=== PATIENT | male | born 1950 | race African-American/Black ===

== ENCOUNTER 2017-10-25 11:12 | Emergency (ER) | payer MEDICARE | END 2017-10-25 13:05 | disposition home or self-care (01) | LOC: ERS 11:12 | DX: J02.9 Acute pharyngitis, unspecified (principal); I10 Essential (primary) hypertension; E78.5 Hyperlipidemia, unspecified; M19.90 Unspecified osteoarthritis, unspecified site; N40.0 Benign prostatic hyperplasia without lower urinary tract symptoms; F20.9 Schizophrenia, unspecified | CPT/HCPCS: 87081; 87430; 99283 ==

== ENCOUNTER 2018-03-03 23:36 | Inpatient (IN) | payer MEDICARE ==
--- NOTE | 2018-03-03 23:52 | CT ---
HEAD CT WITHOUT CONTRAST: 03/03/18 COMPARISON: 06/29/10 HISTORY: Slurred speech with right sided weakness. TECHNIQUE: Serial axial CT imaging at 5 mm intervals from vertex through skull base without contrast. FINDINGS: Imaged paranasal sinuses/mastoid air cells well aerated. No displaced calvarial fracture. No intracra nial hemorrhage, midline shift, mass effect or ventricular enlargement. IMPRESSION: No acute findings. Results called to Dr. Valdez at 11:41 p.m., 03/03/18. Code CR POS: MADAI
[2018-03-03 23:55] LABS: Hemoglobin 10.3 g/dL (14.0-18.0); Mean Corpuscular HGB CONC 34.2 g/dL (32.0-36.0); Mean Corpuscular Hemoglobin 27.4 pg (27.0-31.0); Mean Platelet Volume 7.3 fL (7.4-10.4); Platelet Count 191 thou/uL (130-400); RBC Distribution Width 14.8 % (11.5-14.5); Red Blood Cell (RBC) Count 3.77 mill/uL (4.70-6.10); White Blood Cell (WBC) Count 3.9 thou/uL (4.8-10.8)
[2018-03-03 23:59] LABS: INR-International Normal Ratio 1.1; Prothrombin Time 14.6 SEC (12.0-14.7)
[2018-03-04 00:07] LABS: ALT (SGPT) Less than 7 U/L (8-55); AST (SGOT) 20 U/L (5-34); Albumin 3.4 g/dL (3.4-4.8); Alkaline Phosphatase 110 U/L (40-150); Anion Gap 9 mmol/L (10-20); BUN (Urea Nitrogen) 5 mg/dL (8.4-25.7); Bilirubin, Total 0.5 mg/dL (0.2-1.2); Calc. Creatinine Clearance 0 mL/min (70-130); Calcium 8.4 mg/dL (7.8-10.44); Carbon Dioxide 25 mmol/L (23-31); Chloride 104 mmol/L (98-107); Estimated GFR-MDRD Greater than 90; Globulin 4.7 g/dL (2.4-3.5); Glucose 125 mg/dL (80-115); Potassium 3.3 mmol/L (3.5-5.1); Protein, Total 8.1 g/dL (5.8-8.1); Sodium 135 mmol/L (136-145)
[2018-03-04 00:11] LABS: CKMB 1.8 ng/mL (0-6.6)
[2018-03-04 00:18] LABS: Hypochromia SLIGHT = 6-15 cells (100X) (0-5/hpf); Lymphocytes 72 % (21-51); MDiff Complete? YES; Monocytes 12 % (0-10); Neutrophil 16 % (42-75); PLT Morphology Comment Appears Adequate
[2018-03-04 00:31] LABS: Bilirubin Negative (Negative); Blood, Urine Negative (Negative); Clarity CLEAR (Clear); Glucose, Urine (Dipstick) Negative (Negative); Leukocyte Negative (Negative); Nitrite Negative (Negative); Protein, Urine (Dipstick) Negative (Neg-Trace); Specific Gravity, Urine 1.009 (1.002-1.036); pH, Urine 6.5 (5.0-9.0)
[2018-03-04 00:40] LABS: Amphetamine Not Detected (NotDetected); Barbiturates Screen Not Detected (NotDetected); Benzodiazepine Screen Not Detected (NotDetected); Cocaine Metabolite Screen Not Detected (NotDetected); Medtox Control Line Valid? VALID (VALID); Medtox Reader # READER 4; Methadone Not Detected (NotDetected); Methamphetamine Not Detected (NotDetected); Opiate Screen Not Detected (NotDetected); Oxycodone Screen Not Detected (NotDetected); Phencyclidine (PCP) Not Detected (NotDetected); THC/Cannabinoid Screen Not Detected (NotDetected); Tricyclic Screen Not Detected (NotDetected)
[2018-03-04] MEDS ORDERED: Ondansetron HCl/PF 4 MG/2 ML Vial IVP PRN (02:34)
[2018-03-04] MEDS ORDERED: Acetaminophen 325 MG TAB PO PRN ×2 (02:34→09:07)
[2018-03-04] MEDS ORDERED: Ondansetron ODT 4 MG TAB SL PRN (02:34)
[2018-03-04 03:07] VITALS: BMI 20.9
[2018-03-04 04:02] LABS: Troponin I 0.038 ng/mL (< 0.028)
[2018-03-04 06:18] LABS: Troponin I 0.025 ng/mL (< 0.028)
--- NOTE | 2018-03-04 07:35 | CT ---
CT ANGIOGRAM OF THE HEAD CT ANGIOGRAM OF THE NECK: DATE: 03/03/18. COMPARISON: None. HISTORY: Slurred speech with right-sided weakness. TECHNIQUE: Serial axial CT imaging is obtained at 1.25 mm intervals from the vertex through the lung apices with IV contrast using a CT angiogram protocol. Coronal and sagittal 3D reformatted imaging obtained. FINDINGS: There is a spiculated mass in the right upper lobe measuring 3.2 cm, suspicious for right upper lobe malignancy. Abnormal increased linear density noted in left upper lobe, nonspecific. Enhancement of the arterial structures is limited secondary to timing of the contrast bolus and numer ous venous collateral vessels throughout the posterior aspect of the neck. The degree of venous cont amination and associated streak artifact limits detailed assessment of the arterial structures of the neck as well. There is atherosclerotic calcification in the aortic arch. The origin of the innominate artery, righ t subclavian artery, and right common carotid artery are grossly unremarkable but not well opacified. Origin of left subclavian and left common carotid artery is unremarkable. Streak artifact limits d etailed assessment of the proximal left CCA as well as the left subclavian artery at the level of the left vertebral artery origin. The degree of venous collaterals limits assessment of both vertebral arteries throughout the majority of their course. Distally, the vertebral arteries are patent. There is atherosclerotic calcification at the origin of bilateral internal carotid arteries. There i s no hemodynamically significant stenosis on the basis of NASCET criteria appreciated within the inte rnal or common carotid artery on either side. The basilar artery and its branches appear patent. No central occlusion, sacular aneurysm, or high-g rade stenosis of the posterior circulation is appreciated. There is atherosclerotic calcification of the cavernous carotid arteries bilaterally. Detailed asses sment of the distal EVERARDO and MCA branches is limited on the basis of suboptimal contrast opacification . The A1 and M1 segments appear patent. MCA bifurcation and ICA bifurcation appears grossly unremark able with no central occlusion seen. Osseous structures demonstrate multilevel degenerative change of the cervical spine with disk space n arrowing, degenerative end plate change, and osteophyte formation, most prominent at C3-4, C4-5, C5-6 , and C6-7. No worrisome lytic or blastic bone lesion. IMPRESSION: 1. Suboptimal arterial opacification secondary to extensive collateral vessels. No central arterial occlusion. 2. A spiculated mass measuring 3.2 cm in the right upper lobe, highly suspicious for bronchogenic ca rcinoma. Results called to Dr. Valdez at 12:02 a.m. 03/04/18. CODE CR POS: MADAI
[2018-03-04] MEDS ORDERED: Bisacodyl 5 MG TAB PO PRN (09:07)
[2018-03-04] MEDS ORDERED: Ondansetron ODT 4 MG TAB PO PRN (09:07)
[2018-03-04] MEDS ORDERED: ACETAMINOPHEN PO PRN (09:10)
[2018-03-04] MEDS ORDERED: Guaifenesin DM 100-10/5 ML UDCUP PO PRN (09:10)
[2018-03-04] MEDS ORDERED: DIPHENHYDRAMINE PO PRN (09:10)
[2018-03-04] MEDS ORDERED: Enoxaparin Sodium 40 MG/0.4 ML SYRINGE SC SCH (09:45)
[2018-03-04] MEDS ORDERED: Amlodipine 10 MG TAB PO SCH (09:45)
[2018-03-04] MEDS ORDERED: Acetaminophen 500 MG TAB PO PRN (09:55)
[2018-03-04] MEDS ORDERED: diphenhydrAMINE 25 MG CAP PO PRN (09:56)
[2018-03-04] MEDS ORDERED: Benztropine 1 MG TAB PO PRN (10:00)
--- NOTE | 2018-03-04 11:05 | RAD ---
PORTABLE CHEST 1 VIEW: DATE: 03/03/18. TIME: 11:49 p.m. HISTORY: Small mass found on top of kidney. FINDINGS: Comparison is made with the exam of 01/31/12. FINDINGS: The heart size is normal. The aorta is tortuous. The lungs are expanded with plate of linear atelec tasis in the left mid lung. There is a 2.8 cm nodule in the right mid lung. No pneumothoraces or pl eural effusions are seen. IMPRESSION: A 2.8 cm right lung nodule. Further evaluation with CT scan is recommended. CODE T POS: MADAI
--- NOTE | 2018-03-04 12:13 | MRI ---
MRI RUPERT WITHOUT CONTRAST: HISTORY: Right arm and leg weakness and slurred speech yesterday which have all resolved. FINDINGS: Correlation is made with the previous day's CT scan. There is a small focus of restricted diffusion in the left periventricular white matter consistent wi th recent lacunar infarction. There are multiple foci of T2 prolongation in the periventricular whit e matter consistent with chronic small-vessel ischemic disease. No transcortical infarct, hemorrhage , midline shift, or abnormal extraaxial fluid collections are seen. The ventricular size is appropri ate and the basilar cisterns are patent. IMPRESSION: Recent lacunar infarction in the left periventricular white matter. POS: RE
[2018-03-04] MEDS ORDERED: Potassium Chloride 20 MEQ TAB PO SCH (12:45)
[2018-03-04] MEDS ORDERED: Phenazopyridine HCl 97.5 MG TABLET PO PRN (13:00)
--- NOTE | 2018-03-04 13:06 | HP ---
PRIMARY CARE PROVIDER: Iqra Barahona NP CHIEF COMPLAINT: Weakness. HISTORY OF PRESENT ILLNESS: Mr. Blair is a pleasant 67-year-old gentleman who was seen at [facility] on 03/04/2018. Last night, he reports having right upper extremity and right lower extremity numbness and weakness. He reports that he was unable to lift objects. He also reports having slurred speech. He waited fo r 30 minutes to see if the symptoms would resolve, then he told his . After 45 minutes, he had s pontaneous resolution of the symptoms. He reports occasional chronic cough, but no hemoptysis. He d enies any fevers or chills. He denies any chest pain. He denies any nausea, vomiting, diarrhea, or abdominal pain. REVIEW OF SYSTEMS: All other systems reviewed and found to be negative. PAST MEDICAL HISTORY: Adrenal tumor status post removal, osteoarthritis, dyslipidemia, hypertension, benign prostatic hypertrophy, chronic urinary tract infections, and self catheterization. PAST SURGICAL HISTORY: Partial prostatectomy, transurethral resection of prostate, right adrenal gla nd removal to remove a benign tumor. PSYCHIATRIC HISTORY: Schizophrenia. SOCIAL HISTORY: The patient used to smoke 5 packs of cigarettes a day. He quit smoking 10 years ago . He denies any alcohol use or recreational drug use. FAMILY HISTORY: Myocardial infarction in his mother. ALLERGIES: THORAZINE and VALIUM. CURRENT MEDICATIONS: Amlodipine 10 mg daily, guaifenesin/dextromethorphan p.r.n., acetaminophen/diph enhydramine 2 tablets at bedtime, Cogentin 2 mg 4 times a day as needed, Dulcolax 5 mg daily, fluphen azine 25 mg intramuscularly every month, Macrobid 100 mg 3 times a day, started by his urologist for recurrent urinary tract infections, fish oil 500 mg daily, phenazopyridine 200 mg 3 times a day, pota ssium gluconate 500 mg daily. CODE STATUS: I discussed his code status. He is FULL CODE. His is the surrogate decision make r. PHYSICAL EXAMINATION: GENERAL: Mr. Blair is awake and alert, not in acute distress. VITAL SIGNS: Blood pressure is 154/74, pulse 74, respiratory rate 16, and oxygen saturation 99% on r oom air. He is afebrile. EYES: No scleral icterus. No conjunctival pallor. ENT: Moist mucosal membranes, no oropharyngeal erythema or exudates. NECK: Supple, nontender, trachea is midline. RESPIRATORY: Accessory muscles of breathing are not active. Chest wall movements are symmetric bila terally. LUNGS: Clear to auscultation without wheeze, rhonchi or crepitations. CARDIOVASCULAR: S1 and S2 are heard, regular. Peripheral pulses palpable. No carotid bruit, no per icardial rub. ABDOMEN: Soft, nontender, bowel sounds are heard, no hepatomegaly, no splenomegaly. NEUROLOGIC: Cranial nerves II-XII intact. No focal motor or sensory deficits. Power is 5/5 in all 4 extremities. Deep tendon reflexes 2+, plantar reflexes downgoing bilaterally. LYMPHATIC: No cervical lymphadenopathy. PSYCHIATRIC: Normal mood, normal affect. The patient is oriented to person, place, and time. LABORATORY DATA: Mr. Blair's labs and investigations were reviewed. I reviewed his electrocardiog chuck, which shows normal sinus rhythm, no ST changes to suggest an acute coronary syndrome. I also re viewed his noncontrast CT scan of brain, which does not show any acute intracranial abnormalities. I also reviewed his chest x-ray, which does not show any pulmonary infiltrates. He has a 2.8 cm right lung nodule. He also had CT [place] angiogram with contrast, with suboptimal arterial opac ification secondary to extensive collateral vessels. There was no central arterial occlusion. He echevarria s a spiculated mass measuring 3.2 cm in the right upper lobe, highly suspicious for bronchogenic carc inoma according to radiologist. He has leukopenia with 3900 white cells, normocytic anemia with hemo globin 10.3, normal platelet count, relative neutropenia with 16% neutrophils, lymphocytosis with 72% lymphocytes, monocytosis with 12% monocytes, INR 1.1, decreased sodium of 135, decreased potassium o f 3.3, normal creatinine, unremarkable liver profile, troponin I in the indeterminate at 0.038, subse quently normal at 0.025, normal urinalysis and normal urine drug screen. ASSESSMENT AND PLAN: Mr. Blair is a pleasant 67-year-old gentleman who was seen at [facility] on 03/04/2018. His problem list includes: 1. Lung mass: Patient has a newly diagnosed lung mass which will need further investigations. He i s being admitted to the hospital. Pulmonology Service will be consulted. 2. Right-sided weakness. His presentation is concerning for TIA/CVA. Await MRI brain, await Neurol ogy Service input, start patient on aspirin and statin. 3. Hypokalemia: Replace potassium. 4. Hyponatremia: Mild, likely asymptomatic. 5. Hypertension: Monitor vital signs, titrate antihypertensives as needed. 6. Urinary tract infections, recurrent. Continue Macrobid. He was reportedly at a different antibi otic in the past and was started on nitrofurantoin 100 mg 3 times a day by urologist, Dr. Mendez. Many thanks for allowing me to participate in your patient's care. Please feel free to contact me wi th any questions or concerns. LEVEL OF RISK: High. LEVEL OF COMPLEXITY: High.
--- NOTE | 2018-03-04 14:07 | CON ---
DATE OF CONSULTATION: 03/04/2018 CONSULTING PHYSICIAN: Hospitalist service. IMPRESSION: 1. Transient ischemic attack. 2. Hypertension. 3. Right lung mass. 4. History of prior tobacco use, 10 years ago. PLAN: 1. Aspirin 81 mg per day. 2. Lipitor 20 mg per day. 3. Echocardiogram. Mr. Blair is a 67-year-old man, who reports having a history of hypertension, but no other vascular risk factors. He was at home when he suddenly developed weakness of the right side of the body laura g with some slurred speech. His symptoms lasted about an hour. He was brought into the emergency ro om for evaluation. His CTA did not reveal any significant blockages, although there was some subopti mal evaluation of the intracranial vessels. He reports that he has been having some weight loss over the last few months. He has some morning cough, but no evidence of blood, only just clear phlegm. He denies any shortness of breath or chest pain. PAST MEDICAL HISTORY: Just hypertension. FAMILY HISTORY: Noncontributory. SOCIAL HISTORY: Prior tobacco use. ALLERGIES: CHLORPROMAZINE, and VALIUM. REVIEW OF SYSTEMS: No complaint of headache, nausea, vomiting, vertigo, swallowing difficulties, abd ominal pain. PHYSICAL EXAMINATION: GENERAL: He is a tall, thin elderly man, in no distress. VITAL SIGNS: Blood pressure 158/89, pulse 68, respirations 18, temperature 98.2. HEENT: Pupils equal and reactive. Conjunctivae are clear. Oropharynx clear. NECK: Supple. EXTREMITIES: No cyanosis. NEUROLOGIC EXAM: He is alert and appropriate. His speech is fluent and clear. His exam is, otherwi se, nonfocal. IMAGING: MRI of the brain was reviewed and showed some minimal subcortical white matter ischemic leonard nges, but no acute areas of ischemia. LABORATORY STUDIES: Unremarkable CBC, other than mild anemia with a hemoglobin of 10, normal geochemist ry panel, urinalysis, and toxicology. SUMMARY: This is a 67-year-old man with history of hypertension and transient right-sided weakness, likely secondary to a small vessel transient ischemic attack. He has an incidental finding of a righ t apical mass that will need further evaluation. We would proceed with routine stroke prevention sadaf sures as noted and I would be happy to follow up with him as needed.
[2018-03-04] MEDS: Bisacodyl 5 MG TAB PO PRN (14:26)
[2018-03-04] MEDS: Nitrofurantoin Macrocrystal 50 MG CAP PO SCH ×2 (15:54→20:44)
--- NOTE | 2018-03-04 17:50 | CON ---
DATE OF CONSULTATION: 03/04/2018 Following consultation encompassed 70 minutes time; of that, greater than 50% was spent with the patient and/or in the patient's unit in the hospital. REASON FOR CONSULTATION: Lung mass. HISTORY OF PRESENT ILLNESS: The patient is a pleasant 67-year-old male who came into the hospital yesterday with acute right arm weakness. He did not have any signs of stroke on CT and the symptoms of the right arm abated without intervention. As a part of the workup, the top of his right lung accidentally got scanned and revealed a 3-cm lung mass in the peripheral aspect of the right upper lobe anteriorly. I have had the opportunity to go back to look for previous scans on this patient back in 02/2016. He had a scan done for aortic dissection, which demonstrated a distal 3.8 cm abdominal aortic aneurysm. There was also a poorly circumscribed pulmonary nodule in the right upper lobe with central cavitation. It does not appear that there was any further workup done for the lesion at that time. Discharge summary from that admission in 2015 does not mention any followup in regard to the lung mass at that time. The patient states he has lost about 25 pounds of weight. He is not having hemoptysis. He denies any previous TB exposure. He quit smoking about 18 years ago. PAST MEDICAL HISTORY: 1. He has had an adrenal tumor resected on the right side in [place] several years ago. 2. He has prostatic hypertrophy. 3. Osteoarthritis. 4. Hypertension. 5. Hyperlipidemia. 6. Atonic bladder. PAST SURGICAL HISTORY: 1. Right adrenalectomy. 2. Partial prostatectomy with TURP. SOCIAL HISTORY: Smoking history as outlined above. Does not consume alcohol. Does not use illicit drugs. PSYCHIATRIC HISTORY: Remarkable for schizophrenia. ALLERGIES: THORAZINE and VALIUM. FAMILY MEDICAL HISTORY: Remarkable for coronary artery disease. MEDICATIONS PRIOR TO ADMISSION: Prolixin D, Macrodantin, Dulcolax, phenazopyridine, Tussin cough syrup, potassium, Cogentin, amlodipine. PHYSICAL EXAMINATION: VITAL SIGNS: Temperature 98.6, pulse 72, respirations 20, O2 sat 100%, blood pressure 154/86. GENERAL: He is awake, alert, in no distress. HEENT: Pupils reactive. Sclerae anicteric. Oropharynx clear. NECK: Without adenopathy, JVD or bruits. LUNGS: Clear to auscultation without wheezing, rhonchi or rales. CARDIOVASCULAR: S1, S2 regular without murmur. ABDOMEN: Soft, nontender. No hepatosplenomegaly. EXTREMITIES: He has 1+ clubbing without cyanosis or edema. NEUROLOGIC: 5/5 strength throughout. Reflexes 2+/4 throughout. No sensory deficits noted. LABORATORY DATA: White blood cell count 3.9, hematocrit 30, platelet count 191, 000. INR 1.1. Sodium 135, potassium 3.3, chloride 104, CO2 25, BUN 5, creatinine 0.9, glucose 125. Troponin 0.025. Urinalysis was negative. Toxicology screen negative. I reviewed the CT in detail. ASSESSMENT: 1. A 3-cm right upper lobe lung mass, which is most likely cancer. 2. Stroke type symptoms. RECOMMENDATIONS: 1. He needs a percutaneous biopsy of the right upper lobe mass done by CT guidance. This will be the peripheral avenue of biopsy given the location of the lesion. 2. If at all possible, withhold aspirin, antiplatelet therapy and anticoagulation prior to this as long as it is felt safe by Neurology. BONILLA
[2018-03-04] MEDS ORDERED: Atorvastatin Calcium 10 MG TAB PO SCH (21:00)
[2018-03-05 05:23] LABS: Anion Gap 10 mmol/L (10-20); BUN (Urea Nitrogen) 6 mg/dL (8.4-25.7); Calc. Creatinine Clearance 87 mL/min (70-130); Calcium 8.9 mg/dL (7.8-10.44); Carbon Dioxide 25 mmol/L (23-31); Cardiac Risk 5.8 (Less than 4.5); Chloride 105 mmol/L (98-107); Cholesterol 138 mg/dl (< 200 Desired); Estimated GFR-MDRD Greater than 90; Glucose 104 mg/dL (80-115); HDL Cholesterol 24 mg/dL (>60 Neg Risk); LDL Cholesterol, Calculated 88 mg/dL; Potassium 3.8 mmol/L (3.5-5.1); Sodium 136 mmol/L (136-145); Triglycerides 130 mg/dL (Less than 150)
[2018-03-05 05:52] LABS: Band 1 % (5-11); Eosinophils 5 % (0-10); Hemoglobin 10.6 g/dL (14.0-18.0); Lymphocytes 72 % (21-51); MDiff Complete? YES; Mean Corpuscular HGB CONC 33.1 g/dL (32.0-36.0); Mean Corpuscular Hemoglobin 26.6 pg (27.0-31.0); Mean Corpuscular Volume 80.2 fL (78.0-98.0); Monocytes 13 % (0-10); Neutrophil 7 % (42-75); PLT Morphology Comment Appears Adequate; Platelet Count 181 thou/uL (130-400); RBC Distribution Width 15.2 % (11.5-14.5); Red Blood Cell (RBC) Count 3.99 mill/uL (4.70-6.10); White Blood Cell (WBC) Count 3.8 thou/uL (4.8-10.8)
--- NOTE | 2018-03-05 08:34 | PRG ---
DATE OF SERVICE: 03/05/2018 SUBJECTIVE: The patient has had no further symptoms of stroke. He says he feels okay. PHYSICAL EXAMINATION: VITAL SIGNS: On exam, temperature is 99.7, pulse 100, respirations 20, O2 saturation 97% on room air , blood pressure 156/91. HEENT: Unremarkable. NECK: No JVD. CHEST: Clear. ABDOMEN: Soft. EXTREMITIES: No edema. LABORATORY DATA: White blood cell count 3.8, hematocrit 32, platelet count 181. Sodium 136, potassi um 3.8, chloride 105, CO2 of 25, BUN 6, creatinine 0.9, glucose 104. ASSESSMENT: 1. Lung mass. 2. Transient ischemic attack. PLAN: Awaiting percutaneous lung biopsy of the lung mass.
[2018-03-05] MEDS ORDERED: Fish Oil 1,000 MG CAP PO SCH (09:00)
[2018-03-05] MEDS ORDERED: Enoxaparin Sodium 40 MG/0.4 ML SYRINGE SC SCH (09:00)
[2018-03-05] MEDS ORDERED: POTASSIUM GLUCONATE PO SCH (09:00)
[2018-03-05] MEDS ORDERED: Amlodipine 10 MG TAB PO SCH (09:00)
[2018-03-05] MEDS ORDERED: Aspirin 325 mg Enteric Coated Tablet PO SCH (09:00)
[2018-03-05] MEDS ORDERED: Sodium Bicarbonate 2.5 MEQ/5 ML VIAL ONE (09:37)
[2018-03-05] MEDS ORDERED: Fentanyl 100 MCG/2 ML VIAL ONE (09:37)
[2018-03-05] MEDS ORDERED: Iopamidol 370 76% 100 ML VIAL ONE (10:46)
[2018-03-05] MEDS: Nitrofurantoin Macrocrystal 50 MG CAP PO SCH (11:20)
[2018-03-05 11:26] VITALS: TEMP 98.5
[2018-03-05 11:37] VITALS: BP 146/91
--- NOTE | 2018-03-05 12:07 | PDOC.PN ---
- Subjective Encounter Start Date: 03/05/18 Encounter Start Time: 07:00 Pt seen for followup re: TIA. Denies chest pain, shortness of breath, fevers or chills. - Objective Resuscitation Status: Resuscitation Status FULL:Full Resuscitation Vital Signs & Weight: Vital Signs (12 hours) Temp Pulse Pulse Pulse Pulse Resp BP 03/05/18 11:26 98.5 F 83 18 03/05/18 11:20 100 03/05/18 11:00 80 80 83 146/91 H 03/05/18 07:52 99.7 F H 100 20 03/05/18 07:42 99.7 F H 100 20 03/05/18 07:40 100 87 156/91 H 03/05/18 04:00 98.8 F 84 18 BP BP BP Pulse Ox 03/05/18 11:26 150/87 H 94 L 03/05/18 11:20 03/05/18 11:00 147/85 H 150/87 H 03/05/18 07:52 03/05/18 07:42 156/91 H 97 03/05/18 07:40 157/90 H 03/05/18 04:00 139/81 97 Weight Weight 176 lb I&O: 03/04/18 03/05/18 03/06/18 06:59 06:59 06:59 Intake Total 1220 Balance 1220 Result Diagrams: 03/05/18 04:52 03/05/18 04:52 Phys Exam - Physical Examination Constitutional: NAD HEENT: moist MMs, sclera anicteric, oral pharynx no lesions, 2+ tonsils Neck: no nodes, no JVD, supple, full ROM Respiratory: no wheezing, no rales, no rhonchi, clear to auscultation bilateral Cardiovascular: RRR, no rub S1, S2 Gastrointestinal: soft, non-tender, no distention, positive bowel sounds Neurological: moves all 4 limbs Psychiatric: normal affect, A&O x 3 Dx/Plan (1) TIA (transient ischemic attack) Code(s): G45.9 - TRANSIENT CEREBRAL ISCHEMIC ATTACK, UNSPECIFIED Status: Acute Comment: continue aspirin and statin (2) Lung mass Code(s): R91.8 - OTHER NONSPECIFIC ABNORMAL FINDING OF LUNG FIELD Status: Acute Comment: for biopsy today (3) Hypertension Code(s): I10 - ESSENTIAL (PRIMARY) HYPERTENSION Status: Chronic (4) BPH (benign prostatic hyperplasia) Code(s): N40.0 - BENIGN PROSTATIC HYPERPLASIA WITHOUT LOWER URINRY TRACT SYMP Status: Chronic Comment: stable (5) Osteoarthritis Code(s): M19.90 - UNSPECIFIED OSTEOARTHRITIS, UNSPECIFIED SITE Status: Chronic Comment: stable (6) Dyslipidemia Code(s): E78.5 - HYPERLIPIDEMIA, UNSPECIFIED Status: Chronic Comment: stable - Plan * . Review of Systems - Review of Systems Constitutional: negative: fever, chills, sweats, weakness, malaise Respiratory: negative: Cough, Shortness of Breath, SOB with Excertion, Pleuritic Pain, Wheezing Cardiovascular: negative: chest pain, palpitations, orthopnea, paroxysmal nocturnal dyspnea, edema, light headedness Skin: negative: Rash, Lesions, Will, Bruising Neurological: negative: Weakness, Numbness, Incoordination, Change in Speech, Confusion, Seizures - Medications/Allergies Allergies/Adverse Reactions: Allergies Allergy/AdvReac Type Severity Reaction Status Date / Time chlorpromazine HCl Allergy Severe SEIZURES Verified 03/18/16 02:27 [From Thorazine] diazepam [From Valium] Allergy Severe SEIZURES Verified 03/18/16 02:27 Medications: Current Medications Acetaminophen (Tylenol) 650 mg PO Q4H PRN PRN Reason: Headache/Fever or Pain Acetaminophen (Tylenol) 1,000 mg PO HS PRN PRN Reason: Insomnia Amlodipine Besylate (Norvasc) 10 mg PO DAILY [facility] Last Admin: 03/05/18 11:20 Dose: 10 mg Atorvastatin Calcium (Lipitor) 10 mg PO HS [facility] Last Admin: 03/04/18 20:44 Dose: 10 mg Benztropine Mesylate (Cogentin) 2 mg PO QID PRN PRN Reason: MUSCLE PAIN Bisacodyl (Dulcolax) 5 mg PO DAILY PRN PRN Reason: Constipation Last Admin: 03/04/18 14:26 Dose: 5 mg Diphenhydramine HCl (Benadryl) 50 mg PO HS PRN PRN Reason: Insomnia Enoxaparin Sodium (Lovenox) 40 mg SC 0900 [facility] Fish Oil (Fish Oil) 1,000 mg PO DAILY [facility] Last Admin: 03/05/18 11:20 Dose: 1,000 mg Fluphenazine Decanoate (Prolixin D) 25 mg IM Q28D [facility] Last Admin: 03/04/18 10:31 Dose: Not Given Guaifenesin/Dextromethorphan (Robitussin Dm) 10 ml PO Q4HR PRN PRN Reason: Cough Nitrofurantoin Macrocrystals (Macrodantin) 100 mg PO TID [facility] Last Admin: 03/05/18 11:20 Dose: 100 mg Ondansetron HCl (Zofran Odt) 4 mg PO Q6H PRN PRN Reason: Nausea/Vomiting Phenazopyridine HCl (Azo Standard) 97.5 mg PO Q8H PRN PRN Reason: UTI PAIN Sodium Chloride (Flush - Normal Saline) 10 ml IVF Q12HR [facility] Last Admin: 03/05/18 11:21 Dose: 10 ml Sodium Chloride (Flush - Normal Saline) 10 ml IVF PRN PRN PRN Reason: Saline Flush Last Admin: 03/04/18 20:46 Dose: 10 ml
[2018-03-05] MEDS ORDERED: Aspirin 81 mg Enteric Coated Tablet PO SCH (12:15)
--- NOTE | 2018-03-05 12:23 | RAD ---
CHEST 1 VIEW: HISTORY: Lung mass with biopsy. FINDINGS: Cardiac silhouette and pulmonary vasculature unremarkable. Mediastinum midline. Right lung mass is apparent. No evidence of pneumothorax. radiation monitor leads overlie the chest. IMPRESSION: No evidence of post-biopsy pneumothorax. POS: REH
[2018-03-05] MEDS: Bisacodyl 5 MG TAB PO PRN (12:49)
--- NOTE | 2018-03-05 12:53 | CT ---
CT CHEST WITH IV CONTRAST: HISTORY: Lung mass. FINDINGS: At the peripheral aspect of the anterior segment, right upper lobe, a spiculated, irregular shaped ma ss measures up to 2.9 cm in length x 3.2 cm in width x 2.7 cm in depth. It contains a small central focus of cavitation. Linear scarring is evident within the left upper lobe. The lungs are hyperinflated with scattered bu llae. A lobular cystic lesion in the right lower lobe does contain a density along the medial margin , which is contiguous with the adjacent vessels. This may represent a vascular malformation with adj acent cystic abnormality, possibly related to chronic infection. Nonspecific, nonenlarged lymph nodes are scattered about the mediastinum. Calcification within the a rterial structures. Within the partially visualized upper abdomen, the right adrenal gland is surgic ally absent. The left adrenal gland is not visualized. IMPRESSION: 1. Spiculated right upper lobe mass. Neoplasm is favored. CT biopsy is pending. 2. Chronic obstructive pulmonary disease. 3. Atherosclerosis. 4. Status post right adrenalectomy. POS: MADAI
--- NOTE | 2018-03-05 12:58 | CT ---
CT GUIDED RIGHT LUNG MASS BIOPSY: HISTORY: Right lung mass. FINDINGS: After explaining the procedure and answering all questions. CT chest was performed. A right anterola teral approach was planned. Sterile technique, buffered local anesthesia, CT guidance, and a right l ateral approach were used to carefully advance a 19 gauge trocar needle into the spiculated mass. Po sition was confirmed with CT. A total of seven 20 gauge core biopsy specimens was obtained. Specime n adequacy was confirmed by Dr. Yi from pathology. The needle was removed. No evidence of pneumo thorax. The patient tolerated the procedure well and was returned in unchanged condition. IMPRESSION: Technically successful CT guided biopsy, right upper lobe mass. Pathology is pending. POS: MADAI
--- NOTE | 2018-03-05 14:07 | DIS ---
PRIMARY CARE PHYSICIAN: Iqra Barahona NP DATE OF ADMISSION: 03/04/2018 DATE OF DISCHARGE: 03/05/2018 DISCHARGE DIAGNOSES: 1. Transient ischemic attack. 2. Lung mass. CONDITION OF PATIENT ON THE DAY OF DISCHARGE: Stable. I assessed Mr. Blair on the day of discharg e. Please refer to my daily progress note for further details. CONSULTATIONS DURING THIS HOSPITALIZATION: Pulmonology, Dr. Andrea Ramirez and Neurology, Dr. Haja tatum. DISCHARGE MEDICATIONS: In addition to the patient's preadmission home medications as dictated on my history and physical note dated 03/04/2018, he is being discharged home on aspirin 81 mg daily and a torvastatin 10 mg at bedtime. HOSPITAL COURSE: Mr. Blair is a pleasant 67-year-old gentleman who was admitted to [facility] on 03/04/2018 for a transient ischemic attack as well as a lung mass. Please refe r to my history and physical note dated 03/04/2018 for further details. MRI of the brain showed rece nt lacunar infarction in the left periventricular white matter. He was seen by Neurology Service and diagnosed with transient ischemic attack. He has been started on aspirin and statin. He was also s een by Pulmonology Service and underwent CT-guided lung biopsy of the lung mass on 03/05/2018. A 2D echocardiogram showed left ventricular ejection fraction of 60% to 65%, grade I/III diastolic dysfunc tion, mild mitral regurgitation and mild tricuspid regurgitation. He has aortic valve sclerosis, but it opens well. On the day of discharge, he has white count 3800, hemoglobin 10.6, platelet count 181,000, normal margarito ctrolytes and creatinine 0.94. During this hospitalization, he had triglycerides 130, cholesterol 13 8, LDL cholesterol 88, and HDL cholesterol 24. Many thanks for allowing me to participate in your patient's care. Please feel free to contact me wi th any questions or concerns. DISCHARGE DESTINATION: Home. TOTAL AMOUNT OF TIME SPENT COORDINATING THIS DISCHARGE: 33 minutes.
[2018-03-06] MEDS ORDERED: Aspirin 81 mg Enteric Coated Tablet PO SCH (09:00)
[2018-03-06] MEDS ORDERED: Enoxaparin Sodium 40 MG/0.4 ML SYRINGE SC SCH (09:00)
== END 2018-03-05 16:36 | disposition home or self-care (01) | DRG 204 ==
LOC: ERS 23:36 → 2SE 03-04 01:53
PROVIDERS: ADMIT Internal Medicine; ATTEND Internal Medicine
PROC: 0BBC3ZX Excision of Right Upper Lung Lobe, Percutaneous Approach, Diagnostic (ICD-10-PCS; principal; 2018-03-05)
DX: R91.8 Other nonspecific abnormal finding of lung field (principal); G45.9 Transient cerebral ischemic attack, unspecified; E87.1 Hypo-osmolality and hyponatremia; N39.0 Urinary tract infection, site not specified; M19.90 Unspecified osteoarthritis, unspecified site; E78.5 Hyperlipidemia, unspecified; I10 Essential (primary) hypertension; F20.9 Schizophrenia, unspecified; E87.6 Hypokalemia; N40.1 Benign prostatic hyperplasia with lower urinary tract symptoms; Z87.891 Personal history of nicotine dependence
CPT/HCPCS: 32405; 36415; 36416; 70450; 70496; 70498; 70551; 71045; 71260; 77012; 80048; 80053; 80061; 80306; 81003; 82553; 84484; 85025; 85610; 85730; 88305; 88333; 88334; 93005; 93306; A4216; G8978-GP-CJ; G8979-GP-CJ; G8980-GP-CJ; G8987-GO-CI; G8988-GO-CI; G8989-GO-CI; G8996-GN-CJ; G8997-GN-CJ; J3010; Q0162